=== PATIENT | male | born 1980 | race Caucasian/White ===

== ENCOUNTER 2017-11-23 17:56 | Emergency (ER) | payer MEDICAID ==
[~2017-11-23] VITALS: Ht 162.6 cm; Wt 63.6 kg
[2017-11-23] MEDS ORDERED: PERTUSS(ACELL),DIPH,TET VAC/PF 0.5 ML VIAL IM ONE (20:00)
[2017-11-23] MEDS ORDERED: LIDOCAINE HCL 1% 10 ML VIAL INJ ONE (20:45)
[2017-11-23] MEDS ORDERED: HYDROmorphone 2 MG/ML SYRINGE IVP ONE (21:15)
[2017-11-23] MEDS ORDERED: ONDANSETRON HCL 4 MG/2 ML VIAL IVP ONE (21:15)
[2017-11-23 22:41] VITALS: BP 121/80
== END 2017-11-23 23:21 | disposition home or self-care (01) ==
LOC: EMS 17:57
DX: S82.892A Other fracture of left lower leg, initial encounter for closed fracture (principal); S91.312A Laceration without foreign body, left foot, initial encounter; V23.4XXA Motorcycle driver injured in collision with car, pick-up truck or van in traffic accident, initial encounter; Y93.89 Activity, other specified; Y92.89 Other specified places as the place of occurrence of the external cause; Y99.8 Other external cause status
CPT/HCPCS: 12002; 29515; 73610; 90471; 90715; 96374; 96375; 99284; J1170; J2405; J3490

== ENCOUNTER 2017-11-27 12:12 | Emergency (ER) | payer MEDICAID ==
[~2017-11-27] VITALS: Ht 162.6 cm; Wt 74.0 kg
[2017-11-27] MEDS ORDERED: HYDR-309 PO (12:43)
[2017-11-27] MEDS ORDERED: BACITRACIN 0.9 GM PACKET OINTMENT TP ONE (13:15)
[2017-11-27 14:18] VITALS: BP 128/86
== END 2017-11-27 14:18 | disposition home or self-care (01) ==
LOC: EMS 12:13
DX: S80.812A Abrasion, left lower leg, initial encounter (principal); S80.811A Abrasion, right lower leg, initial encounter; R03.0 Elevated blood-pressure reading, without diagnosis of hypertension; Z48.02 Encounter for removal of sutures; V29.60XA Unspecified motorcycle rider injured in collision with unspecified motor vehicles in traffic accident, initial encounter; Y93.89 Activity, other specified; Y92.89 Other specified places as the place of occurrence of the external cause; Y99.8 Other external cause status
CPT/HCPCS: 29515; 99283

== ENCOUNTER 2017-12-07 15:36 | Emergency (ER) | payer MEDICAID ==
[~2017-12-07] VITALS: Ht 160 cm; Wt 61.0 kg
[~2017-12-07 15:36] MED LIST: HYDR-309 PO
[2017-12-07 16:25] VITALS: BP 121/79
== END 2017-12-07 16:55 | disposition home or self-care (01) ==
LOC: EMS 15:37
DX: Z48.02 Encounter for removal of sutures (principal)
CPT/HCPCS: 99281

== ENCOUNTER 2023-07-13 08:34 | Emergency (ER) | payer MEDICAID, OTHER ==
[~2023-07-13] VITALS: Ht 162.6 cm; Wt 61.4 kg
[2023-07-13 08:36] VITALS: TEMP 98
[2023-07-13] MEDS ORDERED: METH-386 PO (08:36)
[2023-07-13] MEDS ORDERED: IBUP-1492 PO (10:14)
[2023-07-13] MEDS ORDERED: IBUPROFEN 600 MG TABLET PO ONE (10:15)
[2023-07-13] MEDS ORDERED: PENICILLIN V POTASSIUM 500 MG TABLET PO ONE (10:15)
[2023-07-13] MEDS ORDERED: PERCT PO (10:16)
[2023-07-13] MEDS ORDERED: PENI500T2 PO (10:16)
[2023-07-13 10:40] VITALS: BP 146/96; PULSE 80; RESP 18
== END 2023-07-13 11:03 | disposition home or self-care (01) ==
LOC: EMS 08:34
DX: K02.9 Dental caries, unspecified (principal); E05.90 Thyrotoxicosis, unspecified without thyrotoxic crisis or storm; F17.210 Nicotine dependence, cigarettes, uncomplicated; F12.90 Cannabis use, unspecified, uncomplicated; Z91.030 Bee allergy status
CPT/HCPCS: 99283